=== PATIENT | male | born 1940 | race Caucasian/White ===

== ENCOUNTER 2019-03-18 10:48 | Emergency (ER) | payer OTHER ==
--- NOTE | 2019-03-18 11:10 | RAD REPORT ---
EXAM DESCRIPTION: CT - Ct Stroke Brain Wo Cont - 03/18/2019 11:01 am CLINICAL HISTORY: Dizziness COMPARISON: None. TECHNIQUE: Computed axial tomography of the head was obtained. Unenhanced and enhanced images obtain ed. 50 cc Isovue-[address] scans are performed using dose optimization technique as appropriate and may include automated exposure control or mA/KV adjustment according to patient size. FINDINGS: An intracranial bleed is not seen . The ventricles are normal in caliber. No extra-axial fluid collection is noted. No abnormal enhancement seen Fluid within the sinuses/ mastoids is not seen. IMPRESSION: No acute intracranial abnormality is seen. If patient's symptoms persist MRI of the bra in would be recommended. Paul from the emergency room notified 10:53 a.m. March 18, 2019
[2019-03-18 11:11] LABS: Absolute Lymphocytes (CBC) 1.1 K/uL (0.7-4.9); Absolute Monocytes 0.7 K/uL (0.1-1.3); Absolute Neutrophil 4.8 K/uL (1.8-8.0); Basophils % 0.2 % (0-1.3); Hematocrit 42.3 % (39.6-49.0); MPV 8.4 fL (7.6-11.3); Monocytes % 10.4 % (3.3-12.3); RBC Red Blood Cell Count 4.52 M/uL (4.33-5.43)
[2019-03-18 11:15] LABS: Protime INR 1.15
[2019-03-18 11:20] LABS: Potassium 4.3 mmol/L (3.5-5.1)
[2019-03-18] MEDS ORDERED: NA CHLORIDE 0.9% 1,000 ML ONE (11:31)
[2019-03-18] MEDS ORDERED: FOLIC ACID 5 MG/ML VIAL ONE (11:32)
--- NOTE | 2019-03-18 12:23 | RAD REPORT ---
EXAM DESCRIPTION: MRI - Brain Wo Cont - 03/18/2019 11:53 am CLINICAL HISTORY: Dizziness COMPARISON: 03/18/[address] scan TECHNIQUE: Axial, sagittal, and coronal magnetic images of the brain were obtained. Contrast was not requested FINDINGS: No significant abnormal signal is present within the brain. Diffusion-weighted/ADC mapping does not reveal evidence of acute infarction. The ventricles are normal caliber. An extra-axial fluid collection is not present Small mucous retention cyst left maxillary sinus. Mastoids are clear IMPRESSION: No acute abnormality displayed
--- NOTE | 2019-03-18 12:29 | RAD REPORT ---
EXAM DESCRIPTION: [place] Single View03/18/2019 11:22 am CLINICAL HISTORY: Chest pain COMPARISON: None FINDINGS: The lungs appear clear of acute infiltrate. The heart is mildly to moderately enlarged. Postsurgical changes involve the chest. The thoracic aorta is ectatic/tortuous IMPRESSION: No acute abnormality displayed
--- NOTE | 2019-03-18 12:31 | RAD REPORT ---
EXAM DESCRIPTION: CT - Angio Aorta For Dissection - 03/18/2019 12:02 pm CLINICAL HISTORY: . Chest and abdominal pain COMPARISON: None TECHNIQUE: Computed tomography angiography of the chest, abdomen pelvis were obtained. 100 cc Isovue 370 was administered intravenously. Coronal and sagittal reconstruction were performed. MIP 3D reconstruction was performed All CT scans are performed using dose optimization technique as appropriate and may include automated exposure control or mA/KV adjustment according to patient size. FINDINGS: An aortic dissection is not seen. An aortic aneurysm is not displayed. The thoracic aorta is tortuous/ectatic The celiac, SMA and ISACC are patent . A lung consolidation is not present. A pericardial effusion is not seen. A pleural effusion is not n oted. Calcified granuloma left lung The liver,spleen, pancreas adrenals kidneys demonstrate no significant abnormality. The prostate gland moderately enlarged. Small hiatal hernia Diverticula stem from the colon without evidence diverticulitis. Normal appendix IMPRESSION: Negative for an aortic dissection.
--- NOTE | 2019-03-18 12:37 | RAD REPORT ---
EXAM DESCRIPTION: US - Extrem Venous W Compress Olu - 03/18/2019 12:22 pm CLINICAL HISTORY: PAIN Bilateral leg edema and swelling. COMPARISON: No comparisonsNo comparisons TECHNIQUE: Real-time sonographic interrogation of the left and right lower extremity deep venous sys tems was performed. FINDINGS: Normal compressibility, flow augmentation, phasic flow and spontaneous flow is identified in both the left and right lower extremity deep venous systems. IMPRESSION: No sonographic evidence of left or right lower extremity deep venous thrombosis.
--- NOTE | 2019-03-18 12:44 | ER ---
Nurse's Notes [facility] Name: Osmani Payne Age: 78 yrs Sex: Male : 1940 Arrival Date: 03/18/2019 Time: 10:54 Bed 2 Private MD: Diagnosis: Muscle weakness (generalized);Dehydration Presentation: 03/18 10:46 Presenting complaint: Patient states: Sudden onset generalized weakness, family reports aj slurred speech, at 1046 AM. Transition of care: patient was not received from another setting of care. Onset of symptoms was March 18, 2019 at 10:30. Risk Assessment: Do you want to hurt yourself or someone else? Patient reports no desire to harm self or others. Initial Sepsis Screen: Does the patient meet any 2 criteria? No. Patient's initial sepsis screen is negative. Does the patient have a suspected source of infection? No. Patient's initial sepsis screen is negative. Care prior to arrival: None. 10:46 Method Of Arrival: Ambulatory aj 10:46 Acuity: JANES 2 aj Triage Assessment: 10:46 General: Appears in no apparent distress. comfortable, Behavior is anxious. Pain: aj Denies pain. Neuro: Level of Consciousness is awake, alert, obeys commands, Oriented to person, place, time, situation, Appropriate for age Moves all extremities. Weakness Gait is unsteady, Speech is slurred, Facial symmetry appears normal, Pupils are PERRLA, Intact Reports weakness. Respiratory: Airway is patent Respiratory effort is even, unlabored, Respiratory pattern is regular, symmetrical. Derm: Skin is intact, is healthy with good turgor, Skin is pink, warm \T\ dry. normal. Historical: - Allergies: 11:37 No Known Allergies; sg - Home Meds: 11:37 metoprolol tartrate 25 mg oral tab 1 tab once daily [Active]; atorvastatin 10 mg oral sg tab 1 tab once daily [Active]; niacin 250 mg Oral tab 250 mg nightly [Active]; Ranexa 1,000 mg oral Tb12 1 tab 2 times per day [Active]; pantoprazole 40 mg oral TbEC 1 tab once daily [Active]; Nitro-Dur 0.4 mg/hr TD pt24 1 patch once daily [Active]; Nitroglycerin Linqual Aerosol 400 mcg [Active]; aspirin 81 mg Oral chew 1 tab once daily [Active]; Fish Oil 1,000 mg oral cap [Active]; clopidogrel 75 mg oral tab 1 tab once daily [Active]; - PMHx: 11:11 Hypertension; sg 11:40 Prostate Cancer; Myocardial infarction; sg - PSHx: 11:40 Open Heart Sx; GI Surgery; sg - Immunization history:: Adult Immunizations up to date. - Social history:: Smoking status: Patient/guardian denies using tobacco. - Ebola Screening: : Patient negative for fever greater than or equal to 101.5 degrees Fahrenheit, and additional compatible Ebola Virus Disease symptoms Patient denies exposure to infectious person Patient denies travel to an Ebola-affected area in the 21 days before illness onset No symptoms or risks identified at this time. Screenin:47 Abuse screen: Denies threats or abuse. Denies injuries from another. Nutritional sg screening: No deficits noted. Tuberculosis screening: No symptoms or risk factors identified. Never had TB. Fall Risk None identified. Assessment: 10:47 Reassessment: pt to CT for CT Stroke as ordered. sg 10:53 Reassessment: per Paul SEGUNDO, notified of CT scan results at 1053 am. sg 11:03 General: Appears in no apparent distress. well groomed, well developed, well nourished, sg Behavior is cooperative, appropriate for age, anxious. 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 Speech is normal, Facial symmetry appears normal, Pupils are PERRLA, Reports general weakness in entire body and feeling fatigued. Cardiovascular: Patient's skin is warm and dry. Chest pain is denied. Respiratory: Airway is patent Respiratory effort is even, unlabored, Respiratory pattern is regular, symmetrical. GI: Abdomen is round non-distended, Bowel sounds present X 4 quads. : No signs and/or symptoms were reported regarding the genitourinary system. EENT: No signs and/or symptoms were reported regarding the EENT system. Derm: Skin is pale. Musculoskeletal: No signs and/or symptoms reported regarding the musculoskeletal system. 11:05 Reassessment: at bedside evaluating pt at this time. sg 11:12 Reassessment: triage nurse reports that the onset of symptoms per the family was at sg 1030. 11:15 Reassessment: Xray at bedside at this time. sg 11:35 Reassessment: pt transported off the unit for MRI, with interventional neuroradiologistgolden Wooten. sg 12:20 Reassessment: pt remains off the unit in radiology at this time, pt family updated on new orders and the reason for delay in return back to the department, pt family stated understanding. Vital Signs: 11:03 BP 112 / 68; Pulse 59; Resp 16; Temp 97.7; Pulse Ox 94% on R/A; sg ED Course: 10:46 Arm band placed on left wrist. Patient placed in an exam room. aj 10:53 Initial lab(s) drawn, by ct, sent to lab. Inserted saline lock: 20 gauge in right sg wrist, using aseptic technique. Blood collected. 10:54 Patient arrived in ED. hb 10:55 Costa Javed MD is Attending Physician. ate 11:02 CT Stroke Brain w/o Contrast In Process Unspecified. EDMS 11:02 Triage completed. aj 11:03 Pascual Shearer, RN is Primary Nurse. sg 11:03 EKG done, by [employer]. reviewed by Costa Javed MD. sm3 11:07 Patient has correct armband on for positive identification. Bed in low position. Call sg light in reach. Side rails up X2. organizational development specialist on. Pulse ox on. NIBP on. Warm blanket given. Pillow given. Verbal reassurance given. Head of bed elevated. 11:22 X-ray completed. Portable x-ray completed in exam room. Patient tolerated procedure mh1 well. 11:25 Stroke CXR 1 View In Process Unspecified. EDMS 11:40 Brain Wo Cont In Process Unspecified. EDMS 11:[address] via wheelchair. lc 11:55 CT completed. Patient tolerated procedure well. Patient moved back from CT. az 12:03 CT Aorta for Dissection In Process Unspecified. EDMS 12:24 US Extremity Venous W Compression Olu In Process Unspecified. EDMS 12:30 Patient moved back from radiology. sg 12:42 Lay Garcia MD is Hospitalizing Provider. tae 12:47 Josey Serra MD is Hospitalizing Provider. tae 13:30 No provider procedures requiring assistance completed. sg 13:33 Rik Cai MD is Referral Physician. pd 13:36 Josey Serra MD online advertising manager. pd 14:18 IV discontinued, intact, bleeding controlled, No redness/swelling at site. Pressure sg dressing applied. Administered Medications: 11:13 CANCELLED (Duplicate Order): NS 0.9% 1000 ml IV at 1 bolus Per protocol; 1000 mL bolus tae 12:25 Drug: foLIC Acid 1 mg Route: IVPB; Site: right wrist; sg 12:30 Drug: NS 0.9% 1000 ml Route: IV; Rate: 125 ml/hr; Site: right wrist; sg Point of Care Testing: Blood Glucose: 10:58 Blood Glucose: 134 mg/dL; sg Ranges: Outcome: 12:43 Decision to Hospitalize by Provider. tae 13:35 Discharge ordered by . pd 14:15 Discharged to home via wheelchair, with family. sg 14:15 Condition: stable 14:15 Discharge instructions given to patient, Instructed on discharge instructions, follow up and referral plans. safety practices, Demonstrated understanding of instructions, follow-up care. 14:16 Patient left the ED. hb Signatures: Dispatcher [employer] EDMS Pascual Shearer RN RN sg Myers, Amanda, RN RN aj Anderson, Corey, MD MD cha Compean, Lorena lc Harvey, Martha 1 Alison Conway RN RN hb Montes, Shakira 3 Meli Burris Poyani, MD MD pd Corrections: (The following items were deleted from the chart) 11:40 11:11 Home Meds: metoprolol tartrate Oral; sg sg 13:45 13:45 foLIC Acid 1 mg IVPB in right wrist sg sg
--- NOTE | 2019-03-18 12:44 | EDPHYS ---
Physician Documentation [facility] Name: Osmani Payne Age: 78 yrs Sex: Male : 1940 Arrival Date: 03/18/2019 Time: 10:54 Bed 2 Private MD: ED Physician Costa Javed HPI: 03/18 11:13 This 78 yrs old Male presents to ER via Ambulatory with complaints of tae weakness, generalized. 11:13 non focal. Onset: The symptoms/episode began/occurred just prior to arrival. Severity tae of symptoms: At their worst the symptoms were moderate in the emergency department the symptoms have improved mildly. The patient has not experienced similar symptoms in the past. Historical: - Allergies: 11:37 No Known Allergies; sg - Home Meds: 11:37 metoprolol tartrate 25 mg oral tab 1 tab once daily [Active]; atorvastatin 10 mg oral sg tab 1 tab once daily [Active]; niacin 250 mg Oral tab 250 mg nightly [Active]; Ranexa 1,000 mg oral Tb12 1 tab 2 times per day [Active]; pantoprazole 40 mg oral TbEC 1 tab once daily [Active]; Nitro-Dur 0.4 mg/hr TD pt24 1 patch once daily [Active]; Nitroglycerin Linqual Aerosol 400 mcg [Active]; aspirin 81 mg Oral chew 1 tab once daily [Active]; Fish Oil 1,000 mg oral cap [Active]; clopidogrel 75 mg oral tab 1 tab once daily [Active]; - PMHx: 11:11 Hypertension; sg 11:40 Prostate Cancer; Myocardial infarction; sg - PSHx: 11:40 Open Heart Sx; GI Surgery; sg - Immunization history:: Adult Immunizations up to date. - Social history:: Smoking status: Patient/guardian denies using tobacco. - Ebola Screening: : Patient negative for fever greater than or equal to 101.5 degrees Fahrenheit, and additional compatible Ebola Virus Disease symptoms Patient denies exposure to infectious person Patient denies travel to an Ebola-affected area in the 21 days before illness onset No symptoms or risks identified at this time. ROS: 11:15 Constitutional: Negative for fever, chills, and weight loss, Eyes: Negative for injury, tae pain, redness, and discharge, ENT: Negative for injury, pain, and discharge, Neck: Negative for injury, pain, and swelling, Cardiovascular: Negative for chest pain, palpitations, and edema, Abdomen/GI: Negative for abdominal pain, nausea, vomiting, diarrhea, and constipation, Back: Negative for injury and pain, : Negative for injury, bleeding, discharge, and swelling, MS/Extremity: Negative for injury and deformity, Skin: Negative for injury, rash, and discoloration, Neuro: Negative for headache, weakness, numbness, tingling, and seizure, Psych: Negative for depression, anxiety, suicide ideation, homicidal ideation, and hallucinations, Allergy/Immunology: Negative for hives, rash, and allergies, Endocrine: Negative for neck swelling, polydipsia, polyuria, polyphagia, and marked weight changes, Hematologic/Lymphatic: Negative for swollen nodes, abnormal bleeding, and unusual bruising. 11:15 Respiratory: Positive for cough, shortness of breath. Exam: 11:15 Constitutional: This is a well developed, well nourished patient who is awake, alert, tae and in no acute distress. Head/Face: Normocephalic, atraumatic. Eyes: Pupils equal round and reactive to light, extra-ocular motions intact. Lids and lashes normal. Conjunctiva and sclera are non-icteric and not injected. Cornea within normal limits. Periorbital areas with no swelling, redness, or edema. ENT: Nares patent. No nasal discharge, no septal abnormalities noted. Tympanic membranes are normal and external auditory canals are clear. Oropharynx with no redness, swelling, or masses, exudates, or evidence of obstruction, uvula midline. Mucous membranes moist. Neck: Trachea midline, no thyromegaly or masses palpated, and no cervical lymphadenopathy. Supple, full range of motion without nuchal rigidity, or vertebral point tenderness. No Meningismus. Chest/axilla: Normal chest wall appearance and motion. Nontender with no deformity. No lesions are appreciated. Cardiovascular: Regular rate and rhythm with a normal S1 and S2. No gallops, murmurs, or rubs. Normal PMI, no JVD. No pulse deficits. Respiratory: Lungs have equal breath sounds bilaterally, clear to auscultation and percussion. No rales, rhonchi or wheezes noted. No increased work of breathing, no retractions or nasal flaring. Abdomen/GI: Soft, non-tender, with normal bowel sounds. No distension or tympany. No guarding or rebound. No evidence of tenderness throughout. Back: No spinal tenderness. No costovertebral tenderness. Full range of motion. Skin: Warm, dry with normal turgor. Normal color with no rashes, no lesions, and no evidence of cellulitis. MS/ Extremity: Pulses equal, no cyanosis. Neurovascular intact. Full, normal range of motion. Neuro: Awake and alert, GCS 15, oriented to person, place, time, and situation. Cranial nerves II-XII grossly intact. Motor strength 5/5 in all extremities. Sensory grossly intact. Cerebellar exam normal. Normal gait. Psych: Awake, alert, with orientation to person, place and time. Behavior, mood, and affect are within normal limits. Vital Signs: 11:03 BP 112 / 68; Pulse 59; Resp 16; Temp 97.7; Pulse Ox 94% on R/A; sg MDM: 10:55 Patient medically screened. [facility] 11:16 Data reviewed: vital signs, nurses notes, lab test result(s), EKG, radiologic studies, [facility] CT scan, MRI, plain films. 13:36 Physician consultation: Rik Cai MD discharges patient from the emergency pd department. ED course: Hospitalist was consulted for admission for Generalized weakness and aphasia. Pt was seen and examined at bedside by me in the ER. Lab work and imaging was reviewed by me as well. CVA workup was negative. pt was found to have Generalized weakness due to dehydration. Aphasia had resolved before me seeing the patient. Dr Cai was contacted by me from the ER. Case was discussed. lab work and imaging was Also Discussed. Reccs DC pt from ER with outpt followup. No new medication needed. Plan DW with Patient and ER doctor. Pt agreeable to the plan. Encouraged to increase PO intake with fluids and F.u with PCP tomorrow with Dr Sprague in [place]. . 03/18 10:58 Order name: Basic Metabolic Panel; Complete Time: 12:35 ag 03/18 10:58 Order name: CBC with Diff; Complete Time: 12:35 ag 03/18 10:58 Order name: Protime (+inr); Complete Time: 12:35 ag 03/18 10:58 Order name: Ptt, Activated; Complete Time: 12:35 ag 03/18 11:00 Order name: Glucose, Ancillary Testing; Complete Time: 12:35 EDMS 03/18 11:12 Order name: Urine Culture [facility] 03/18 10:58 Order name: CT Stroke Brain w/o Contrast; Complete Time: 12:35 ag 03/18 10:58 Order name: Stroke CXR 1 View; Complete Time: 12:35 ag 03/18 11:12 Order name: D-Dimer; Complete Time: 12:35 [facility] 03/18 11:36 Order name: Brain Wo Cont; Complete Time: 12:35 EDMS 03/18 11:44 Order name: US Extremity Venous W Compression Olu; Complete Time: 12:58 tae 03/18 11:44 Order name: CT Aorta for Dissection; Complete Time: 12:35 tae 03/18 10:58 Order name: EKG; Complete Time: 10:59 ag 03/18 10:58 Order name: Accucheck; Complete Time: 11:16 ag 03/18 10:58 Order name: Cardiac monitoring; Complete Time: 12:23 ag 03/18 10:58 Order name: EKG - Nurse/Tech; Complete Time: 12:23 ag 03/18 10:58 Order name: IV Saline Lock; Complete Time: 12:24 ag 03/18 10:58 Order name: Labs collected and sent; Complete Time: 12:28 ag 03/18 10:58 Order name: NPO; Complete Time: 12:28 ag 03/18 10:58 Order name: O2 Per Protocol; Complete Time: 12:28 ag 03/18 10:58 Order name: O2 Sat Monitoring; Complete Time: 12:28 ag Administered Medications: 11:13 CANCELLED (Duplicate Order): NS 0.9% 1000 ml IV at 1 bolus Per protocol; 1000 mL bolus [facility] 12:25 Drug: foLIC Acid 1 mg Route: IVPB; Site: right wrist; sg 12:30 Drug: NS 0.9% 1000 ml Route: IV; Rate: 125 ml/hr; Site: right wrist; sg Point of Care Testing: Blood Glucose: 10:58 Blood Glucose: 134 mg/dL; sg Ranges: Critical Glucose Levels:Adult <50 mg/dl or >400 mg/dl <40 mg/dl or >180 mg/dl Disposition: 03/18/19 13:35 Discharged to Home. Impression: Muscle weakness (generalized), Dehydration. - Condition is Fair. - Discharge Instructions: Dehydration, Elderly, Weakness, [id number]. - Medication Reconciliation Form, Thank You Letter, Antibiotic Education, Prescription Opioid Use form. - Follow up: Rik Cai MD; When: 48 Hours; Reason: Recheck today's complaints. - Problem is new. - Symptoms are resolved. Signatures: Dispatcher [employer] EDMS Pascual Shearer RN RN sg Myers, Amanda, RN RN aj Anderson, Corey, MD MD cha Gallardo, Ana ag Baxter, Heather, RN RN hb Desai, MD YURI Dowling pd Corrections: (The following items were deleted from the chart) 11:13 11:12 NS 0.9% 1000 ml IV at 1 bolus Per protocol; 1000 mL bolus ordered. [facility] 11:36 11:16 MR STROKE PROTOCOL+MRI.RAD.BRZ ordered. [facility] EDSD 11:40 11:11 Home Meds: metoprolol tartrate Oral; [facility] 12:47 12:43 Hospitalization Ordered by Lay Garcia MD for Inpatient Admission. Preliminary [facility] diagnosis is Weakness; Aphasia; Cardiomegaly. Bed requested for Telemetry/MedSurg (Inpatient). Status is Inpatient Admission. Condition is Fair. Problem is new. Symptoms have improved. UTI on Admission? No. [facility] 13:33 12:47 03/18/2019 12:43 Hospitalization Ordered by Josey Serra MD for Inpatient pd Admission. Preliminary diagnosis is Weakness; Aphasia; Cardiomegaly. Bed requested for Telemetry/MedSurg (Inpatient). Status is Inpatient Admission. Condition is Fair. Problem is new. Symptoms have improved. UTI on Admission? No. tae 14:16 13:35 03/18/2019 13:35 Discharged to Home. Impression: Muscle weakness (generalized); hb Dehydration. Condition is Fair. Forms are Medication Reconciliation Form, Thank You Letter, Antibiotic Education, Prescription Opioid Use. Follow up: Rik Cai; When: 48 Hours; Reason: Recheck today's complaints. Problem is new. Symptoms are resolved. pd
--- NOTE | 2019-03-19 07:20 | EKG ---
Test Date: 2019-03-18 Test Time: 10:56:35 Crystal Growing Technician: LORENZO MEASUREMENT RESULTS: Intervals: Rate: 59 RI: 174 QRSD: 140 QT: 492 QTc: 487 Foster: P: 42 RI: 174 QRS: -69 T: 51 INTERPRETIVE STATEMENTS: Sinus bradycardia Right bundle branch block Left anterior fascicular block Bifascicular block Inferior infarct, age undetermined Anterolateral infarct, age undetermined Abnormal ECG No previous ECG available for comparison Electronically Signed On 03-19-19 07:16:17 CDT by Javier Olmos
== END 2019-03-18 14:16 | disposition home or self-care (01) ==
LOC: ER 10:48
DX: R53.1 Weakness (principal); E86.0 Dehydration; I10 Essential (primary) hypertension; C61 Malignant neoplasm of prostate; I25.2 Old myocardial infarction; Z79.82 Long term (current) use of aspirin
CPT/HCPCS: 93005; 87088; 85025; 80048; 36415; 85610; 82962; 85379; 85730; 71275; 74175; 70450; 71045; 93970; 70551; 96374; 99285; Q9967; J7030; 87086